=== PATIENT | male | born 1995 | race African-American/Black ===

== ENCOUNTER 2024-03-05 19:45 | Emergency (ER) | payer BC, SELFPAY ==
[2024-03-05 19:46] VITALS: BP 115/74; PULSE 90; RESP 20; TEMP 36.6; O2SAT 100
[2024-03-05 21:29] LABS: Basophils Absolute Auto 0.1 K/mm3 (0.0-0.1); Basophils Percent Auto 0.6 % (0.2-1.2); Eosinophils Percent Auto 0.1 % (0-4.4); Hematocrit 41.1 % (42.0-52.0); Hemoglobin 13.6 g/dL (14.0-18.0); Immature Granulocyte Absolute 0.03 K/mm3 (0.00-0.031); Immature Granulocyte Percent A 0.2 % (0-0.5); Lymphocytes Absolute Auto 1.43 K/mm3 (0.9-3.2); Lymphocytes Percent Auto 10.1 % (18.3-44.2); Mean Corpuscular HGB Conc 33.1 g/dl (32-36); Mean Corpuscular Hemoglobin 30.1 pg (26-34); Mean Corpuscular Volume 90.9 fl (80-100); Mean Platelet Volume 10.4 fl (7.4-10.4); Monocytes Absolute Auto 1.1 K/mm3 (0.1-0.6); Monocytes Percent Auto 8.1 % (2.6-8.5); Neutrophils Absolute Auto 11.5 K/mm3 (1.3-6.7); Neutrophils Percent Auto 80.9 % (45.5-73.1); Platelet Count Result 159 k/mm3 (150-375); Red Blood Count 4.52 M/mm3 (4.6-6.20); Red Cell Distribution Width 12.2 % (11.5-14.5); White Blood Count 14.2 K/mm3 (4.5-10.0)
[2024-03-05 21:35] LABS: Appearance Urine Clear (Clear); Bacteria Urine None Seen /hpf; Bilirubin Urine Negative (Negative); Blood Urine Negative (Negative); Color Urine Dark Yellow (Yellow); Glucose Urine UA Negative (Negative); Ketones Urine 2+ mg/dL (Negative); Leukocyte Esterase Ur Trace LEU/UL (Negative); Nitrate Urine Negative (Negative); Non Pathogenic Casts 0-2; Protein Urine Trace mg/dL (Negative); RBC Urine 0-2 /hpf (0-2); Specific Grav Ur 1.023 (1.001-1.035); Squamous Epithelial Cell Urine None Seen /hpf (Few); WBC Urine 0-5 /hpf (0-3); pH Urine 6.5 (5.0-9.0)
--- NOTE | 2024-03-05 21:40 | ED.GENADULT ---
HPI - General Adult General Chief complaint: Nausea/Vomiting/Diarrhea Stated complaint: vomiting Time Seen by Provider: 03/05/24 21:04 Source: patient Mode of arrival: ambulatory Limitations: no limitations History of Present Illness HPI narrative: Is a 28-year-old male who presents to the ED with chief complaint of nausea and vomiting beginning today. Reports 3 episodes of vomiting today. He states that this started after getting overheated well moving to his new home. He had no relief after trying to take a cold shower. States that he is still nauseous but definitely feels better than earlier. Denies abdominal pain, diarrhea, urinary symptoms, chest pain, shortness of breath, cough, fevers. No recent illness. Related Data Allergies Allergy/AdvReac Type Severity Reaction Status Date / Time No Known Allergies Allergy Mild Other Verified 06/01/19 15:56 Review of Systems Review of Systems: All systems as dictated in HPI Exam Narrative: GENERAL: Well-appearing, well-nourished, and in no acute distress. HEAD: Normocephalic, atraumatic. EYES: PERRLA and EOMI. ENT: Nares clear, no rhinorrhea or epistaxis. Mucous membranes moist. Oropharynx without tonsillar hypertrophy exudate or other lesions. NECK: Supple. No adenopathy or masses. CHEST: No respiratory distress. Clear to auscultation. No wheezes rales or rhonchi HEART: Regular rate and rhythm. No murmur heard. Normal peripheral pulses. ABDOMEN: Soft, nontender, nondistended, normal active bowel sounds. MSK: Normal range of motion. No edema. SKIN: Warm, dry, no rash. NEURO: Alert and oriented x3. No focal deficits. PSYCH: Normal mood and affect. Course Vital Signs Vital signs: Vital Signs Temperature 97.8 F 03/05/24 19:46 Pulse Rate 90 03/05/24 19:46 Respiratory Rate 20 03/05/24 19:46 Blood Pressure 115/74 03/05/24 19:46 Pulse Oximetry 100 03/05/24 19:46 Temperature 97.7 F 03/05/24 22:21 Pulse Rate 77 03/05/24 22:21 Respiratory Rate 14 03/05/24 22:21 Blood Pressure 121/73 03/05/24 22:21 Pulse Oximetry 98 03/05/24 22:21 Medical Decision Making MDM Narrative Medical decision making narrative: this is a 28-year-old male who presents to the ED with chief complaint of Nausea and vomiting after working outside today. Vitals are normal. Exam shows no evidence of acute abdomen. He is feeling symptomatically improved after arriving to the ED. lab work shows mild elevation in white count consistent with acute phase reaction. CMP largely unremarkable. Lipase is normal. UA shows evidence of some dehydration with 2+ ketones but otherwise intact. Patient feels much improved with the Zofran and he is able to tolerate p.o.. Shared decision making to avoid any further workup at this time. symptoms and presentation consistent with Gastroenteritis. Rx for Zofran given Pt will be discharged in stable condition. Return precautions given and supportive measures discussed. Pt is understanding and agreeable with plan for discharge and follow-up with PCP. Vital Signs Vital Signs: Vital Signs Temperature 97.8 F 03/05/24 19:46 Pulse Rate 90 03/05/24 19:46 Respiratory Rate 20 03/05/24 19:46 Blood Pressure 115/74 03/05/24 19:46 Pulse Oximetry 100 03/05/24 19:46 Temperature 97.7 F 03/05/24 22:21 Pulse Rate 77 03/05/24 22:21 Respiratory Rate 14 03/05/24 22:21 Blood Pressure 121/73 03/05/24 22:21 Pulse Oximetry 98 03/05/24 22:21 Lab Data 03/05/24 21:12 03/05/24 21:12 Labs: Lab Results 03/05/24 03/05/24 Range/Units 21:12 21:16 WBC 14.2 H (4.5-10.0) K/mm3 RBC 4.52 L (4.6-6.20) M/mm3 Hgb 13.6 L (14.0-18.0) g/dL Hct 41.1 L (42.0-52.0) % MCV 90.9 (80-100) fl MCH 30.1 (26-34) pg MCHC 33.1 (32-36) g/dl RDW 12.2 (11.5-14.5) % Plt Count 159 (150-375) k/mm3 MPV 10.4 (7.4-10.4) fl Immature Gran % (Auto) 0
[2024-03-05 21:44] LABS: Alanine Aminotransferase 17 U/L (6-50); Albumin Level 5.3 g/dL (3.5-5.1); Alkaline Phosphatase 76 U/L (38-126); Anion Gap 12 mmol/L (4-12); Aspartate Amino Transferase 32 U/L (17-59); Bilirubin,Total 1.4 mg/dL (0.2-1.3); Blood Urea Nitrogen 15 mg/dL (9-20); Calcium 10.2 mg/dL (8.4-10.2); Carbon Dioxide 24 mmol/L (22-30); Chloride 103 mmol/L (98-107); Estimated CRCL calculation 82 ml/min; Estimated Glomerular Filt Rate > 60; Glucose 86 mg/dL (65-110); Lipase 21 U/L (23-300); Potassium 3.5 mmol/L (3.4-5.0); Sodium 139 mmol/L (137-145)
[2024-03-05 21:55] LABS: Add Urine Microscopic? YES
[2024-03-05] MEDS: ONDANSETRON INJ 4 MG/2 ML VIAL IV PUSH (22:19)
[2024-03-05 22:21] VITALS: BP 121/73; PULSE 77; RESP 14; TEMP 36.5; O2SAT 98
== END 2024-03-05 22:41 | disposition home or self-care (01) ==
PROVIDERS: Emergency Medicine; Emergency Provider Physician Assistant
DX: K52.9 Noninfective gastroenteritis and colitis, unspecified (principal)
CPT/HCPCS: 36415; 80053; 81001; 83690; 85025; 96374; 99284; J2405